=== PATIENT | male | born 1935 | race Caucasian/White ===

== ENCOUNTER 2016-12-09 09:22 | Inpatient (IN) | payer MEDICARE, OTHER ==
--- NOTE | 2016-12-09 09:51 | ED.PDOC ---
History of Present Illness - General Chief Complaint: General Stated Complaint: cough /fever Time Seen by Provider: 12/09/16 09:37 Source: patient Exam Limitations: no limitations - History of Present Illness Initial Comments: Oscar Tran 81 y/o male stated he had non productive cough for the last 4 days then had fever and chills yesterday.No sob,no chest pains; no ill contact,No foreign travel Timing/Duration: other - 4 hours Severity: moderate Improving Factors: nothing Worsening Factors: nothing Associated Symptoms: denies symptoms Allergies/Adverse Reactions: Allergies Penicillins Allergy (Verified 12/09/16 10:06) Home Medications: Ambulatory Orders Finasteride 5 mg PO DAILY 12/09/16 Omeprazole 40 mg PO DAILY 12/09/16 Simvastatin 20 mg PO DAILY 12/09/16 Tamsulosin HCl [Flomax] 0.4 mg PO DAILY 12/09/16 Review of Systems - Review of Systems Constitutional: States: no symptoms reported EENTM: States: no symptoms reported Respiratory: States: see HPI Cardiology: States: no symptoms reported Gastrointestinal/Abdominal: States: no symptoms reported Genitourinary: States: other - bph Musculoskeletal: States: back pain - chronic-lumbar spine compressed fracture Skin: States: no symptoms reported Past Medical History (General) - Patient Medical History Hx Other PMH: Yes - bph,chronic back pain Surgical History: other - prostate,cataract bilateral,hernia repair - Vaccination History Hx Pneumococcal Vaccination: Yes - Social History Hx Tobacco Use: No Hx Chewing Tobacco Use: No - Activities of Daily Living Patient Lives Alone: No - Grooming Ability: Independent Eating (Feeding) Ability: Independent Toileting Ability: Independent Family Medical History - Family History Sister Hx Family Cancer: Yes - multiple myeloma Physical Exam - Physical Exam General Appearance: Alert, No apparent distress Eye Exam: bilateral normal Ears, Nose, Throat: hearing grossly normal, normal ENT inspection, normal pharynx Neck: non-tender, full range of motion, supple Respiratory: chest non-tender, decreased breath sounds Cardiovascular/Chest: regular rate, rhythm, no murmur Peripheral Pulses: radial,right: 1+, radial,left: 1+ Gastrointestinal/Abdominal: normal bowel sounds, non tender, soft, no organomegaly Rectal Exam: tenderness - prostate gland Back Exam: normal inspection, no CVA tenderness, no vertebral tenderness Extremity: normal range of motion, non-tender, no calf tenderness Neurologic: alert, normal mood/affect, oriented x 3 Skin Exam: normal color, warm/dry Lymphatic: no adenopathy Progress - Progress Progress: 12/09/16 11:11 Vital Signs - 8 hr 12/09/16 12/09/16 12/09/16 09:25 09:35 10:38 Temperature 100.8 F H Pulse Rate Pulse Rate [ 95 H 92 H LEFT BRACHIAL] Respiratory 16 16 20 Rate Blood Pressure 153/101 143/76 [LEFT BRACHIAL] O2 Sat by Pulse 95 100 Oximetry 12/09/16 10:40 Temperature Pulse Rate 92 H Pulse Rate [ LEFT BRACHIAL] Respiratory 20 Rate Blood Pressure [LEFT BRACHIAL] O2 Sat by Pulse 95 Oximetry Laboratory Tests 12/09/16 12/09/16 12/09/16 09:55 09:55 10:05 WBC 2.4 L* RBC 3.73 L Hgb 11.9 L Hct 35.5 L MCV 95.0 H MCH 31.9 H MCHC 33.5 RDW 17.1 H Plt Count 96 L MPV 7.7 Absolute Neuts (auto) Not Reportable Absolute Lymphs (auto) Not Reportable Absolute Monos (auto) Not Reportable Absolute Eos (auto) Not Reportable Neutrophils % Not Reportable Neutrophils % (Manual) 72.0 Lymphocytes % Not Reportable Lymphocytes % (Manual) 21.0 Monocytes % Not Reportable Monocytes % (Manual) 1.0 Eosinophils % Not Reportable Basophils % Not Reportable Band Neutrophils 6.0 RBC Morphology Plts christo decreased Sodium 136 Potassium 4.3 Chloride 100 L Carbon Dioxide 27 Anion Gap 13.3 BUN 20 H Creatinine 0.84 BUN/Creatinine Ratio 23.8 H Random Glucose 152 H Serum Osmolality 277.5 Lactic Acid 2.4 H* Calcium 8.9 Total Bilirubin 1.1 H AST 52 H ALT 44 Alkaline Phosphatase 77 Serum Total Protein 7.4 Albumin 3.6 Globulin 3.8 H Albumin/Globulin Ratio 0.9 L Urine Color Urine Appearance Urine pH Ur Specific [place] Urine Protein Urine Glucose (UA) Urine Ketones Urine Blood Urine Nitrite Urine Bilirubin Urine Urobilinogen Ur Leukocyte Esterase Urine RBC Urine WBC Ur Epithelial Cells Urine Bacteria 12/09/16 10:48 WBC RBC Hgb Hct MCV MCH MCHC RDW Plt Count MPV Absolute Neuts (auto) Absolute Lymphs (auto) Absolute Monos (auto) Absolute Eos (auto) Neutrophils % Neutrophils % (Manual) Lymphocytes % Lymphocytes % (Manual) Monocytes % Monocytes % (Manual) Eosinophils % Basophils % Band Neutrophils RBC Morphology Sodium Potassium Chloride Carbon Dioxide Anion Gap BUN Creatinine BUN/Creatinine Ratio Random Glucose Serum Osmolality Lactic Acid Calcium Total Bilirubin AST ALT Alkaline Phosphatase Serum Total Protein Albumin Globulin Albumin/Globulin Ratio Urine Color Yellow Urine Appearance Clear Urine pH 7.0 Ur Specific [place] 1.020 Urine Protein 100 H Urine Glucose (UA) Negative Urine Ketones Trace Urine Blood Trace-intact H Urine Nitrite Negative Urine Bilirubin Small H Urine Urobilinogen 2.0 H Ur Leukocyte Esterase Negative Urine RBC 1-3 Urine WBC 0 Ur Epithelial Cells 0 Urine Bacteria 0 - EKG/XRAY/CT XRAY: chest - no consolidation;L spine compression deformity Departure - Departure Clinical Impression: Fever in adult, Prostatitis, acute, Thrombocytopenia, unspecified Leukopenia Qualifiers: Leukopenia type: neutropenia Neutropenia type: unspecified Qualified Code(s): D70.9 - Neutropenia, unspecified Time of Disposition: 11:50 Disposition: Admit Patient Condition: Fair Home Medications: Ambulatory Orders Finasteride 5 mg PO DAILY 12/09/16 Omeprazole 40 mg PO DAILY 12/09/16 Simvastatin 20 mg PO DAILY 12/09/16 Tamsulosin HCl [Flomax] 0.4 mg PO DAILY 12/09/16 Decision To Admit - Decistion To Admit Decision to Admit Reason: Admit from ER Decision to Admit Date: 12/09/16 - D/W Andreas Fuentes ANP/Hospitalist Decision to Admit Time: 11:51
[2016-12-09] MEDS ORDERED: IPRATROPIUM/ALBUTEROL 3 ML VIAL NEB ONE (09:53)
[2016-12-09] MEDS ORDERED: levoFLOXacin 500MG IV 500 MG in PREMIX BAG 1 BAG IVPB ONE (10:15)
--- NOTE | 2016-12-09 10:22 | RAD ---
EXAM DESCRIPTION: Chest,2 Views CLINICAL HISTORY: 81 years, Male, cough COMPARISON: September 08, 2016 FINDINGS: Adequate inspiration. Stable. Opacities at the lung bases probably chronic change. Previously noted possible infiltrate at the left base not clearly seen at this time. Possible mild bronchial wall thickening. Mild apical pleural thickening. Cardiac silhouette normal. IMPRESSION: No definite consolidation. There may be mild bronchitis. Stable heart size. Electronically signed by: Gilmar Granda MD 12/09/2016 10:20 AM CDT
[2016-12-09] MEDS ORDERED: levoFLOXacin 500MG IV 100 ML IVPB ONE (10:23)
--- NOTE | 2016-12-09 10:27 | RAD ---
EXAM DESCRIPTION: Lumbar Spine 3 Views CLINICAL HISTORY: 81 years, Male, pain COMPARISON: September 08 FINDINGS: Progressive anterior compression of L2 now about 37. Anterior height of L2 about 2.1 cm versus 3.0 cm at L3. On August study study compressive change probably about 10%. Minimal compression deformity of the superior endplate of L5 is similar prior study. Please note that L5 is a transitional vertebrae. Some minimal mid left lumbar curvature now present probably related to slight interval progression of the right-sided L2 anteriorly. Stable appearance of disc spaces. IMPRESSION: Interval mild compression deformity of L2. Other findings not significantly different Electronically signed by: Gilmar Granda MD 12/09/2016 10:26 AM CDT
[2016-12-09] MEDS ORDERED: MORPHINE SULFATE INJ 10 MG/ML VIAL IV ONE (10:46)
[2016-12-09] MEDS ORDERED: BENZONATATE PERLES 100 MG CAP PO ONE (11:22)
[2016-12-09] MEDS ORDERED: LEVALBUTEROL NEBS 1.25 MG/3 ML VIAL NEB ONE (11:23)
[2016-12-09] MEDS ORDERED: HYDROcodone 5MG/APAP 325MG 1 EA TAB PO ONE (11:24)
[2016-12-09] MEDS ORDERED: ALBUTEROL SULFATE 2.5 MG/3 ML VIAL NEB PRN (12:01)
[2016-12-09] MEDS ORDERED: ACETAMINOPHEN 325 MG TAB PO PRN (12:01)
--- NOTE | 2016-12-09 12:02 | HP ---
SUPERVISING PHYSICIAN: Miguel Thomson MD CHIEF COMPLAINT: Cough, fever. HISTORY OF PRESENT ILLNESS: Mr. Tran is a 81 year-old male who presented to the Emergency Department complaining that he had a nonobstructive cough that had been present for 4 days and that he has been running a fever and has some chills. Fever was noted up to 100.1 over the last 3 days. Laboratory studies showed that he had a 2.4 white count with a left shift and 6% bands. Chemistries had normal electrolytes. Lactic acid is elevated at 2.4. Liver functions showed a slight elevation in his AST at 52 and bilirubin at 1.1. Radiographic studies in the Emergency Department, chest x-ray 2 view, showed no definite consolidations, only mention of mild bronchitis. Dr. Crystal, based off the patient's history of back pain of which he has had a recent lumbar compression fracture and history of benign prostatic hypertrophy, completed a rectal examination with note the prostate was enlarged and tender on palpation and boggy. The patient's vital signs on admission showed he was febrile with a temperature of 100.8, pulse 101 , blood pressure initially was 143/76, saturation 95% on room air, respirations 20. Given the patient's symptomatology and concerns for acute prostatitis with fever and neutropenia with lactic acid elevated, Dr. Crystal requested a CT of the abdomen and pelvis with contrast and per radiology interpretation there was note that he had a right basilar airspace consolidation. There was also note of a large volume of stool in his colon and that his bladder wall was thickened with associated enlargement of the prostate. Dr. Crystal then requested the patient be admitted to the hospital for continuation of treatment and further evaluation for concerns for acute prostatitis with sepsis evident and consolidation noted on CT scan of the right lower lobe of the lung. The patient is now going to be admitted to the medical/surgical floor for treatment of right lower lobe pneumonia. He is admitted in stable condition. PAST MEDICAL HISTORY: 1. Lumbar compression fracture, L2, two months previous, patient being treated conservatively. 2. Benign prostatic hypertrophy. 3. Hyperlipidemia. 4. Gastroesophageal reflux disease. PAST SURGICAL HISTORY: 1. Transurethral resection of the prostate in 2004. 2. Double hernia surgery in 2004. 3. Bilateral cataracts, 2012. CURRENT MEDICATIONS: 1. Flomax 0.4 mg daily. 2. Omeprazole 40 mg daily. 3. Finasteride 5 mg daily. 4. Simvastatin 20 mg daily. ALLERGIES: PENICILLIN. FAMILY HISTORY: SOCIAL HISTORY: REVIEW OF SYSTEMS: CONSTITUTIONAL: As noted in history of present illness, fever and chills, also notes he has had an unintentional weight loss of over 30 pounds in the last 3 months. HEENT: Denies any nasal congestion, headaches, vision changes, earaches, sore throat. RESPIRATORY: As noted in history of present illness. CARDIOVASCULAR: No chest pain, syncope or near syncopal episodes, or palpitations. GASTROINTESTINAL: Notes he has problems with constipation but denies any diarrhea, nausea or vomiting or abdominal pain. GENITOURINARY: History of benign prostatic hypertrophy with some decreased flow but no hematuria or dysuria or polyuria. NEUROLOGICAL: Denies any dizziness, headaches. syncopal episodes or other neurological symptoms. PHYSICAL EXAMINATION: VITAL SIGNS: Temperature on admission to the medical/surgical floor was 101.6 , pulse 121, blood pressure 149/54, respirations 20, saturation 90% on room air. Admission weight 79.1 kg. GENERAL: The patient is ill-appearing but appears to be in no acute distress. He does have a cough. He is alert. HEENT: Tympanic membranes clear bilaterally. Pharynx is pink. Mucous membranes were dry. There are no lesions. NECK: Supple, non-tender, full range of motion with no jugular venous distention. CHEST: Lungs diminished towards the bases bilaterally with very faint wheezing and some mild rhonchi heard on the right compared to the left. CARDIOVASCULAR: Regular rate and rhythm with no murmurs, gallops, or rubs appreciated. ABDOMEN: Non-tender, positive bowel sounds. No rebound tenderness. EXTREMITIES: No cyanosis, clubbing, or edema. NEUROLOGIC: Cranial nerves II through XII are grossly intact. Facial features are symmetrical. Extraocular movements are within normal limits. There is no nystagmus. He is alert and oriented x3. There are no motor or sensory deficits noted. RECTAL: Examination performed in the Emergency Room by ER physician was reported as tenderness on palpation with a boggy enlarged prostate. No mention of bright red blood. LABORATORY: White count 2.4, hemoglobin 11.9, hematocrit 35.5, platelet count 96,000, differential did show a left shift with 60% bands. Chemistries showed normal electrolytes with potassium 4.3, BUN 20, creatinine 0.4. Glucose 152, lactic 2.4 initially, calcium 8.9, bilirubin slightly elevated with AST of 52. Other liver functions showed to be within normal limits. C-reactive protein was elevated at 26.2. PSA normal at 1.16. Urinalysis showed 100 of protein, tract intact blood, small amount of bilirubin 2.0 urobilinogen and microscopic revealed no WBCs, RBCs 1 to 3.epithelials or bacteria. MICROBIOLOGY: Blood cultures pending. Urine culture pending. Sputum culture pending. RADIOLOGY: Lumbar spine x-ray in the Emergency Department initially on admission through the Emergency Room per radiology interpretation showed a mild compression deformity at L2 and had a chest x-ray and per radiology interpretation there is no definite consolidation, mention of mild bronchitis. This was followed up by an abdomen and pelvis CT with contrast and per radiology interpretation there was note of a right basilar airspace consolidation with a trace pleural effusion concerning for pneumonia as well as a large volume of stool in the colon noted. His bladder showed some wall thickening with associated enlargement of the prostate, also note was hepatic hypodensity too small to characterize but statistically more likely a cyst or hemangioma. ASSESSMENT: 1. Right lower lobe pneumonia, community acquired in a patient with septic process. 2. Sepsis secondary to community acquired pneumonia, right lower lobe in a immunocompromised patient due to pancytopenia. 3. Acute prostatitis with normal PSA. 4. Pancytopenia, uncertain etiology but very concerning with the patient presenting with sepsis secondary to pneumonia. 5. Anemia with normochromic normochromic RBC uncertain etiology but with pancytopenia there is concern for hematological cancer such as multiple myeloma needing close follow-up 6. Unintentional weight loss of 30 pounds over the last 3 months, unknown etiology again concerning for hematological cancer such as multiple myeloma . 7. Constipation as noted on CT scan with patient having a history of obstipation. 8. Lower back pain secondary to L2 compression fracture within the last 2 months with no reported paraesthesia or bowel or bladder dysfunction 9. Microhematuria likely secondary to acute prostatitis. 10. Gastroesophageal reflux disease on PPI. PLAN: The patient will be admitted to the medical/surgical floor for continuation of treatment and further evaluation with community acquired pneumonia and developing sepsis. He was started on Levaquin in the Emergency Department. Will follow this up with continued Levaquin 500 daily and start him on some IV fluids with normal saline for a total of 2 liters to be followed up with maintenance fluids. Will plan to repeat his lactic acid at 4 o'clock today. Will await cultures results of sputum, urine and blood. Until those results are available, continue to treat with Levaquin unless patient shows some deterioration and continuation of increase in lactic acid after which will consider possibly adding a second antibiotic as appropriate. Will resume his home medications once they have been updated and verified. Will start him on DVT prophylaxis. He was having some wheezing, therefore, I plan to get him a dose of Solu-Medrol, initially 60 mg. Hopefully, this will help with the leukocytosis and thrombocytopenia as well. He will be on aggressive bronchial hygiene with Duoneb treatments q.i.d. He will be started on a regular diet. We will give him a Dulcolax suppository in efforts to relieve some of the consolidation as well as some Miralax. The patient refuses to take milk of magnesia as he says it does him no good. He has been using mag citrate in the past. We will repeat laboratory studies in the morning to include CBC and CMP and serum/urine protein electrophoresis. He will be placed on telemetry. Anticipate length of stay to 2 to 3 days. Until then, we will continue to monitor and treat appropriately. #[id number] [facility]
[2016-12-09] MEDS ORDERED: SODIUM CHLORIDE 0.9% 1000ML 1,000 ML IVS ONE (12:07)
[2016-12-09] MEDS ORDERED: methylPREDNISolone SODIUM SUC 125 MG/2 ML VIAL IV ONE (12:09)
--- NOTE | 2016-12-09 12:22 | CT ---
EXAM DESCRIPTION: Abdomen/Pelvis w/Contrast CLINICAL HISTORY: Abdominal pain. COMPARISON: None. TECHNIQUE: CT of the abdomen and pelvis was performed following intravenous contrast. Multiple axial images and multiplanar reconstructions were generated. This exam was performed according to our departmental dose-optimization program, which includes automated exposure control, adjustment of the mA and/or kV according to patient size and/or use of iterative reconstruction technique. FINDINGS: Lung bases: There is patchy consolidation in the dependent portion of the right lower lobe with an associated small right pleural effusion. Solid organs: 4 mm hypodensity in the right hepatic lobe which is too small to completely characterize. The gallbladder, spleen, pancreas, kidneys, and adrenal glands are unremarkable. Gastrointestinal: The stomach and small intestine are unremarkable. There is a moderate volume of stool present throughout the colon. The appendix is not visualized. No free fluid or free air. Vascular: Severe atherosclerotic plaque in the abdominal aorta and its major branches. Lymph nodes: No pathologically enlarged lymph nodes are present by CT size criteria. Musculoskeletal and soft tissues: Multilevel degenerative changes in the lumbar spine. There is a compression fracture of the L2 vertebral body with up to 30% loss of stature along the superior endplate, with slight cortical irregularity suggesting this may be acute or subacute. Small fat-containing right inguinal hernia. Urinary bladder and pelvic organs: Diffuse bladder wall thickening is demonstrated. The prostate is enlarged. IMPRESSION: 1. Right basilar airspace consolidation with trace right pleural effusion, concerning for pneumonia or aspiration. 2. Large volume of stool in the colon. Correlate for constipation. 3. Bladder wall thickening with associated enlargement of the prostate. Correlate with urinalysis for infectious/inflammatory etiologies versus chronic outlet obstruction. 4. Hepatic hypodensity too small to completely characterize, but statistically most likely a cyst or hemangioma. 5. Other findings as above. Electronically signed by: Chase Tavares MD 12/09/2016 12:21 PM CDT
[2016-12-09] MEDS: IV SET AND CAP CHANGE INJ INJ SCH (12:38)
[2016-12-09] MEDS ORDERED: BISACODYL SUPPOSITORY 10 MG PR ONE (12:43)
[2016-12-09] MEDS ORDERED: KETOROLAC TROMETHAMINE INJ 30 MG/ML VIAL IV ONE (12:43)
--- NOTE | 2016-12-09 12:45 | PCM.CORE ---
Physician DVT/VTE - Nurse DVT Assessment & Total Each Risk Factor Represents 3 Points: Age over 75 years, Medical PT with Hx of ND, CHF, Severe infection/sepsis DVT Assessment Score: 6 - 5 or more Very High Risk Treatments: Early Ambulation *, Sequential Compression Device Pharmacological: Enoxaparin 40mg SQ Daily
[2016-12-09] MEDS: POLYETHYLENE GLYCOL 3350 17 GM PCKT PO SCH (12:55)
[2016-12-09] MEDS ORDERED: ENOXAPARIN SODIUM 40 MG/0.4 ML SYG SUBCU SCH (13:00)
[2016-12-09] MEDS ORDERED: SODIUM CHLORIDE 0.9% 1000ML 1,000 ML IVS PRN (14:13)
[2016-12-09] MEDS: IPRATROPIUM/ALBUTEROL 3 ML VIAL INH SCH ×2 (16:14→20:10)
[2016-12-09] MEDS: MORPHINE SULFATE INJ 10 MG/ML VIAL IV PRN (17:09)
[2016-12-09] MEDS: KCL 20MEQ/0.45% NS 1,000 ML IVS PRN (17:09)
[2016-12-10] MEDS: BENZONATATE PERLES 100 MG CAP PO SCH ×4 (00:05→20:40)
[2016-12-10] MEDS: MORPHINE SULFATE INJ 10 MG/ML VIAL IV PRN (04:34)
[2016-12-10] MEDS ORDERED: PANTOPRAZOLE SODIUM IV 40 MG VIAL ONE (05:22)
[2016-12-10] MEDS: KCL 20MEQ/0.45% NS 1,000 ML IVS PRN (05:25)
[2016-12-10] MEDS: PANTOPRAZOLE SODIUM IV 40 MG VIAL IV SCH (05:37)
--- NOTE | 2016-12-10 06:52 | RAD ---
Procedure: XR CHEST 2 VIEWS Exam Date: 12/10/2016 Ordering Provider: Wilbur Fuentes NP Clinical Indication: Pneumonia Comparison: 12/09/2016 Findings: Cardiomediastinal silhouette is stable. Focal lung consolidation: Right basilar subsegmental atelectasis and/or infiltrate. Left lung is clear. Pleural effusion: Small right pleural effusion. Pneumothorax: None Acute bony or soft tissue abnormality: None Impression: 1. Right basilar subsegmental atelectasis and/or infiltrate with small right pleural effusion. Electronically signed by: Thomas Avila MD 12/10/2016 6:51 AM CDT
[2016-12-10] MEDS: IPRATROPIUM/ALBUTEROL 3 ML VIAL INH SCH ×4 (08:18→20:08)
[2016-12-10] MEDS ORDERED: levoFLOXacin 500MG IV 100 ML IVPB ONE (08:21)
[2016-12-10] MEDS ORDERED: ENOXAPARIN SODIUM 40 MG/0.4 ML SYG SUBCU SCH (09:00)
[2016-12-10] MEDS ORDERED: SIMVASTATIN 20 MG TAB PO SCH (09:00)
[2016-12-10] MEDS: levoFLOXacin 500MG IV 500 MG in PREMIX BAG 1 BAG IVPB SCH (09:03)
[2016-12-10] MEDS: TAMSULOSIN 0.4 MG CAP PO SCH (09:04)
[2016-12-10] MEDS: POLYETHYLENE GLYCOL 3350 17 GM PCKT PO SCH (09:04)
[2016-12-10] MEDS: FINASTERIDE 5 MG TAB PO SCH (09:04)
[2016-12-10] MEDS ORDERED: SODIUM CHLORIDE 0.9% (FLUSH) 10 ML SYG IV ONE (12:41)
[2016-12-10] MEDS: ESCITALOPRAM 10 MG TAB PO SCH (13:30)
[2016-12-10] MEDS: ONDANSETRON INJ 4 MG/2 ML VIAL IV PRN (13:51)
[2016-12-10] MEDS ORDERED: ALPRAZolam 0.25 MG TAB PO ONE (16:28)
[2016-12-10] MEDS: HYDROcodone 5MG/APAP 325MG 1 EA TAB PO PRN (19:02)
[2016-12-10] MEDS: SIMVASTATIN 20 MG TAB PO SCH (20:40)
--- NOTE | 2016-12-10 21:08 | PN ---
DATE: 12/10/16 SUPERVISING PHYSICIAN: Miguel Thomson M.D. SUBJECTIVE: The patient is feeling a little better this morning. He has been afebrile since admission. He has had no nausea or vomiting. Says his shortness of breath is improved as well. He notes that he continues to feel weak and just generally not well. The patient notes that he has had several moderate sized bowel movements and says he feels a little bit better in regards to his constipation. OBJECTIVE: VITAL SIGNS: T max was 99.1, pulse 79, blood pressure 119/71, respirations 20, satting 96% on room air. Weight is 81.4 kg. I's and O's show a positive balance of 1770 with 3645 in, 1875 out. CHEST: Lungs remain diminished bilaterally but no obvious lesions noted today. Continues to have faint rhonchi heard over the right lateral posterior aspect compared to the left. HEART: Regular rate and rhythm. ABDOMEN: Soft, non-tender. Positive bowel sounds. EXTREMITIES: No clubbing, cyanosis or edema. LABORATORY: White count remains at 2.4, hemoglobin has dropped to 9.6, hematocrit 28.2 with platelet count 85,000. Differential shows a left shift. Chemistries: Sodium remains low at 133, potassium 5.0 with BUN 19, creatinine 0.74, calcium 8.1. LDH was 212, sed rate was 50. MICROBIOLOGY: Blood cultures remain negative at 24 hours. Urine culture remains negative at 24 hours. RADIOLOGY: Chest x-ray two view chest this morning per radiology interpretation continues to show a right basilar subsegmental atelectasis and/ or infiltrate with a small pleural effusion on the right. ASSESSMENT: 1. Right lower lobe pneumonia community acquired in a patient with a septic component showing some stabilization after IV fluids with now normal lactic acid. 2. Sepsis secondary to community acquired pneumonia right lower lobe in an immunocompromised patient due to pancytopenia. 3. Acute prostatitis with a normal PSA and elevated C reactive protein. 4. Anemia with a normocytic normochromic RBC presentation of uncertain etiology with pancytopenia that is a concern for hematological cancer such as multiple myeloma needing close followup. 5. Unintentional weight loss of 30 pounds over the last 3 months, unknown etiology again concerning for hematological cancer such as multiple myeloma. 6. Constipation as noted on CT scan with patient having a history of obstipation showing good improvement with enemas and Milk of Magnesia. 7. Lower back pain secondary to L2 compression fracture within the last 2 months with no reported paraesthesia or bowel or bladder dysfunction. 8. Microhematuria likely secondary to acute prostatitis. 9. Gastroesophageal reflux disease on PPI. PLAN: Will continue with antibiotic treatment at this point with Levaquin for the community acquired pneumonia and possible prostatitis. Given the concerns for multiple myeloma with the patient showing weight loss, pancytopenia, elevated LDH, sed rate and C reactive protein, I will go ahead and order a serum protein electrophoresis. The patient will need close followup in regards to those findings. He does not have a primary care provider in [place] as he is just here visiting temporarily as he has family here, but has voiced that he would like to establish to assist with further investigation of the ongoing concern for multiple myeloma or other hematologic disorders. I did discuss with him that hopefully we could get him into Dr. Mittal for further consultation in the near future. He does live just 30 minutes away from [place] in [place], and is in agreement with seeing Dr. Mittal at [facility] whenever he needs to. He is also having some issues with sleeping and his has voiced that he has been very depressed and not sleeping for quite a while now. Given the insomnia and ongoing depression, will start him on Lexapro for antidepressant and try p.r.n. Xanax as well as Restoril to assist with the patient's resting and anxiety. He will continue on aggressive DuoNeb treatments and pulmonary hygiene. At this point, I will not give an additional dose of Solu-Medrol awaiting further studies on the serum protein electrophoresis and the patient is no longer showing any respiratory distress or any wheezing. I will continue with Milk of Magnesia as needed for constipation. The patient has a positive balance fluid ramirez and is taking adequate p.o. fluids, therefore will plan to saline lock him. He will remain on telemetry for close monitoring for an additional 24 hours. He will certainly benefit from continued parenteral antibiotics awaiting final culture results of sputum, urine and another 24 to 48 hours for blood cultures to result out as he improves clinically. Will continue to monitor with repeat laboratory studies. In regards to his L2 fracture, again there is a remote concern that this may be resulting from some underlying hematologic disorder such as multiple myeloma and I did discuss this with the patient. He has in the past seen somebody in [place] in regards to a possible kyphoplasty procedure, however given the concerns for the multiple myeloma and other disorders at this point I think followup with Dr. Mittal is prudent and just treat his back pain with pain medicine as needed. He is having good control with Motrin. Will plan to do a Physical Therapy consultation on him Monday prior to discharge. If he is discharged tomorrow, he will certainly need close followup with either Rachel in the clinic or Dr. Joy to further assist in referral to Dr. Mittal. Until discharge, will continue to monitor and treat appropriately. #[id number] [facility]
[2016-12-10] MEDS: TEMAZEPAM 15 MG CAP PO PRN (22:05)
[2016-12-11] MEDS: HYDROcodone 5MG/APAP 325MG 1 EA TAB PO PRN ×3 (05:10→19:52)
[2016-12-11] MEDS: PANTOPRAZOLE SODIUM IV 40 MG VIAL IV SCH (05:37)
[2016-12-11] MEDS: SODIUM CHLORIDE 0.9% (FLUSH) 10 ML SYG IV PRN (05:37)
--- NOTE | 2016-12-11 07:03 | RAD ---
Clinical History : pneumonia , MAIN Exam : PA and lateral views of the chest 12/11/2016 7:00 AM CDT Comparisons : PA and lateral views of the chest December 10, 2016 CT abdomen and pelvis with contrast December 09, 2016 Findings : There is improving right lower lobe airspace disease. The rest the lungs remain largely clear. The heart is stable in size. The mediastinal contours are normal in appearance. The thoracic spine is age appropriate. The shoulders are unremarkable. Limited evaluation of the upper abdomen demonstrates no gross abnormalities. Impression: Improving right lower lobe airspace disease. Electronically signed by: Johanne Lee MD 12/11/2016 7:02 AM CDT
[2016-12-11] MEDS ORDERED: levoFLOXacin 500MG IV 100 ML IVPB ONE (08:19)
[2016-12-11] MEDS: IPRATROPIUM/ALBUTEROL 3 ML VIAL INH SCH ×4 (08:44→20:10)
[2016-12-11] MEDS: FINASTERIDE 5 MG TAB PO SCH (09:43)
[2016-12-11] MEDS: ESCITALOPRAM 10 MG TAB PO SCH (09:43)
[2016-12-11] MEDS: BENZONATATE PERLES 100 MG CAP PO SCH ×3 (09:43→20:59)
[2016-12-11] MEDS: TAMSULOSIN 0.4 MG CAP PO SCH (09:43)
[2016-12-11] MEDS: levoFLOXacin 500MG IV 500 MG in PREMIX BAG 1 BAG IVPB SCH (09:43)
[2016-12-11] MEDS: SODIUM CHLORIDE 0.9% (FLUSH) 10 ML SYG IV SCH ×2 (09:44→19:52)
[2016-12-11] MEDS: POLYETHYLENE GLYCOL 3350 17 GM PCKT PO SCH (10:00)
[2016-12-11] MEDS: BENZOCAINE-MENTH LOZ (CEPACOL) 1 EA LOZ MT PRN (10:08)
[2016-12-11] MEDS: guaiFENesin ER TAB 600 MG TAB PO SCH ×2 (11:30→20:59)
[2016-12-11] MEDS: ONDANSETRON INJ 4 MG/2 ML VIAL IV PRN (12:22)
--- NOTE | 2016-12-11 12:30 | PN ---
DATE: 12/11/16 SUPERVISING PHYSICIAN: Miguel Thomson M.D. SUBJECTIVE: The patient says he feels somewhat better this morning but he continues complaints of a lot of coughing and he cannot get the phlegm up. He also has some pain in the right lower rib area and he also gets somewhat short of breath with exertion. OBJECTIVE: VITAL SIGNS: He is afebrile. Heart rate is 105, it has gotten up as high as 124. Blood pressure 150/78, respiratory rate 20, O2 sat is 94% on 2 liters nasal cannula. The patient has had 2 large bowel movements in the last 24 hours. CARDIAC: Regular rate and rhythm. RESPIRATORY: Diminished throughout somewhat more notably on the right side. There is no expiratory wheezing. ABDOMEN: Soft, nondistended, non-tender. Bowel sounds are positive. EXTREMITIES: No cyanosis, clubbing or edema. NEUROLOGIC: He is awake, alert and oriented times three. LABORATORY: WBCs have dropped slightly to 2.1, hemoglobin and hematocrit are stable at 9.6 and 28.2 with platelet count 85. Electrolytes are basically within normal limits. C reactive protein is improved to 11.2. Preliminary blood cultures show no growth after 24 hours and his urine culture shows no growth after 48 hours. Chest x-ray per radiology interpretation shows improving right lower lobe airspace disease. All other labs and films have been reviewed via the EMR. ASSESSMENT: 1. Right lower lobe pneumonia community acquired in a patient with a septic component showing some stabilization after IV fluids. 2. Sepsis secondary to community acquired pneumonia right lower lobe in an immunocompromised patient due to pancytopenia. 3. Acute prostatitis with normal PSA and elevated C reactive protein. 4. Anemia with a normocytic normochromic RBC presentation of uncertain etiology with pancytopenia that is a concern for a hematological cancer such as multiple myeloma needing close followup. 5. Unintentional weight loss of 30 pounds over the last 3 months, unknown etiology. 6. Constipation as noted per CT scan. The patient has a history of chronic constipation. 7. Lower back pain secondary to an L2 compression fracture within the last 2 months with no reported paresthesia, bowel or bladder dysfunction. 8. Microhematuria likely secondary to acute prostatitis. 9. Gastroesophageal reflux disease on a PPI. PLAN: We will continue present supportive care. I will order routine labs in the morning. I have also added Mucinex as an expectorant as well as Cepacol lozenges to help with the cough. He has a scheduled appointment with a new primary care physician, Dr. Yun, in [place] on 12/28/16, but will need to obtain an appointment with Hematology in [place] prior to his discharge. I have also ordered an ambulation study in the morning as well as a PT consultation. I will also get nursing to ambulate him today and check his oxygen. We will continue to monitor the patient closely and followup as needed. Dr. Thomson is the collaborating physician available for consultation. #[id number] [facility]
[2016-12-11] MEDS: TEMAZEPAM 15 MG CAP PO PRN (20:55)
[2016-12-11] MEDS: SIMVASTATIN 20 MG TAB PO SCH (20:59)
[2016-12-12] MEDS: HYDROcodone 5MG/APAP 325MG 1 EA TAB PO PRN ×4 (01:44→20:03)
[2016-12-12] MEDS: SODIUM CHLORIDE 0.9% (FLUSH) 10 ML SYG IV PRN ×2 (05:34→23:33)
[2016-12-12] MEDS: PANTOPRAZOLE SODIUM IV 40 MG VIAL IV SCH (05:34)
[2016-12-12] MEDS ORDERED: levoFLOXacin 500MG IV 100 ML IVPB ONE (08:08)
[2016-12-12] MEDS: IPRATROPIUM/ALBUTEROL 3 ML VIAL INH SCH ×4 (08:23→20:43)
[2016-12-12] MEDS: ESCITALOPRAM 10 MG TAB PO SCH (08:34)
[2016-12-12] MEDS: guaiFENesin ER TAB 600 MG TAB PO SCH ×2 (08:34→20:03)
[2016-12-12] MEDS: levoFLOXacin 500MG IV 500 MG in PREMIX BAG 1 BAG IVPB SCH (08:35)
[2016-12-12] MEDS: BENZONATATE PERLES 100 MG CAP PO SCH ×3 (08:35→20:03)
[2016-12-12] MEDS: TAMSULOSIN 0.4 MG CAP PO SCH (08:35)
[2016-12-12] MEDS: FINASTERIDE 5 MG TAB PO SCH (08:35)
[2016-12-12] MEDS: POLYETHYLENE GLYCOL 3350 17 GM PCKT PO SCH (08:36)
[2016-12-12] MEDS: BENZOCAINE-MENTH LOZ (CEPACOL) 1 EA LOZ MT PRN ×2 (08:36→20:03)
[2016-12-12] MEDS: SODIUM CHLORIDE 0.9% (FLUSH) 10 ML SYG IV SCH ×2 (08:36→20:03)
[2016-12-12] MEDS ORDERED: PANTOPRAZOLE SODIUM TAB 40 MG PO ONE (08:44)
[2016-12-12] MEDS: PANTOPRAZOLE SODIUM TAB 40 MG PO SCH (08:45)
[2016-12-12] MEDS: IV SET AND CAP CHANGE INJ INJ SCH (12:25)
--- NOTE | 2016-12-12 13:16 | PN ---
SUPERVISING PHYSICIAN: Cristofer Joy MD DATE: 12/12/16 SUBJECTIVE: The patient is sitting up in his hospital bed. He is eating his meal. His is at the bedside. He has complaints of shortness of breath, especially with exertion, but he did manage to walk approximately 50 feet without any significant desaturations. OBJECTIVE: VITAL SIGNS: Afebrile. Heart rate 101. Blood pressure 115/70. Respiratory rate 20. O2 saturation 93% on 2 liters nasal cannula. LUNGS: Rhonchi noted through all lung nova with a few expiratory wheezes in the bases. CARDIAC: Regular rate and rhythm. ABDOMEN: Soft, nontender, nondistended. Bowel sounds are positive. EXTREMITIES: No cyanosis, clubbing or edema. NEUROLOGIC: Awake, alert and oriented times three. LABORATORY: WBC down to 1.9. Hemoglobin and hematocrit are stable at 9.8 and 29.1. Platelet count 93. Sodium 134, potassium 4.3, chloride 98, carbon dioxide 28, BUN 17, creatinine 0.67, calcium 8.3, serum total protein 5.8, albumin 2.8. Preliminary blood cultures show no growth after 3 days. All other labs and films have been reviewed via the EMR. ASSESSMENT: 1. Right lower lobe pneumonia, community acquired, in a patient with a septic component, showing some stabilization after antibiotics and IV fluids. 2. Sepsis secondary to #1. 3. Acute prostatitis with normal PSA and elevated C-reactive protein. 4. Anemia with a normocytic/normochromic RBC presentation of uncertain etiology with pancytopenia that is a concern for a hematologic disorder and need for close followup. 5. Unintentional weight loss of 30 pounds over the last 3 months, unknown etiology. 6. Constipation, now resolved. 7. Lower back pain secondary to an L2 compression fracture within the last 2 months with no reported paresthesia, bowel or bladder dysfunction. 8. Microhematuria, most likely secondary to acute prostatitis. 9. Gastroesophageal reflux disease. PLAN: We will continue present supportive care. I spoke with Dr. Mittal this morning and she will see the patient in clinic next week. She has also requested labs and has asked for a B12 and folate level. We will fax all of the pertinent records to her. He also has a scheduled appointment with his new primary care physician, Dr. Yun in [place] at the end of the month. He is to continue his aggressive pulmonary hygiene and we will continue to monitor him closely. I also ordered a chest x-ray for the morning. Dr. Joy is the collaborating physician and available for consultation. #[id number] [facility]PITALEvelyn
[2016-12-12] MEDS: SIMVASTATIN 20 MG TAB PO SCH (20:03)
[2016-12-12] MEDS: TEMAZEPAM 15 MG CAP PO PRN (20:39)
[2016-12-12] MEDS: MORPHINE SULFATE INJ 10 MG/ML VIAL IV PRN (23:33)
[2016-12-13] MEDS ORDERED: PANTOPRAZOLE SODIUM TAB 40 MG PO ONE (04:37)
[2016-12-13] MEDS: HYDROcodone 5MG/APAP 325MG 1 EA TAB PO PRN ×4 (04:38→23:28)
[2016-12-13] MEDS: PANTOPRAZOLE SODIUM TAB 40 MG PO SCH (06:30)
--- NOTE | 2016-12-13 07:05 | RAD ---
EXAM: Two view chest. INDICATION: Pneumonia. COMPARISON: Chest x-ray: None. FINDINGS: There is a right basilar airspace opacity. The left lung is clear. The heart is normal in size. A small right pleural effusion is present. There is no pneumothorax IMPRESSION: Right basilar airspace opacity, concerning for pneumonia. Electronically signed by: Andrés Hernández MD 12/13/2016 7:04 AM CDT Workstation: [id number]
[2016-12-13] MEDS ORDERED: levoFLOXacin 500MG IV 100 ML IVPB ONE (08:00)
[2016-12-13] MEDS: IPRATROPIUM/ALBUTEROL 3 ML VIAL INH SCH ×3 (08:31→16:01)
[2016-12-13] MEDS: levoFLOXacin 500MG IV 500 MG in PREMIX BAG 1 BAG IVPB SCH (08:44)
[2016-12-13] MEDS: TAMSULOSIN 0.4 MG CAP PO SCH (08:46)
[2016-12-13] MEDS: ESCITALOPRAM 10 MG TAB PO SCH (08:46)
[2016-12-13] MEDS: POLYETHYLENE GLYCOL 3350 17 GM PCKT PO SCH (08:46)
[2016-12-13] MEDS: BENZOCAINE-MENTH LOZ (CEPACOL) 1 EA LOZ MT PRN ×3 (08:46→23:30)
[2016-12-13] MEDS: guaiFENesin ER TAB 600 MG TAB PO SCH ×2 (08:46→21:14)
[2016-12-13] MEDS: BENZONATATE PERLES 100 MG CAP PO SCH ×3 (08:46→21:14)
[2016-12-13] MEDS: FINASTERIDE 5 MG TAB PO SCH (08:46)
[2016-12-13] MEDS: SODIUM CHLORIDE 0.9% (FLUSH) 10 ML SYG IV SCH ×2 (09:59→21:15)
--- NOTE | 2016-12-13 13:11 | PN ---
SUPERVISING PHYSICIAN: Cristofer Joy MD DATE: 12/13/16 SUBJECTIVE: The patient is sitting up in the his bed. He has complained of coughing. He continues to feel poorly. He gets short of breath with exertion. He denies any chest pain, nausea, vomiting. OBJECTIVE: VITAL SIGNS: Afebrile. Heart rate 85. Blood pressure 111/56. Respiratory rate 18. O2 saturation 92% on 2 liters nasal cannula. LUNGS: Bilateral rhonchi throughout, somewhat diminished at the bases. Questionable mild expiratory wheezing throughout although clears with coughing. CARDIAC: Regular rate and rhythm. ABDOMEN: Soft, nontender, nondistended. Bowel sounds are positive. EXTREMITIES: No cyanosis, clubbing or edema. NEUROLOGIC: Awake, alert and oriented times three. LABORATORY: WBC unchanged at 1.9. Hemoglobin and hematocrit are stable at 10.2 and 29.8. Platelet count is slightly improved at 105. Sodium 134, potassium 4.2, chloride 96, BUN 15, creatinine 0.75. Serum osmolality 269, calcium 8.3. C-reactive protein has gone up to 26.3. Vitamin B12 is 635, serum folate 7.64. Preliminary blood cultures, urine culture and sputum culture show no growth. Chest x-ray per radiologic interpretation shows right basilar airspace opacity concerning for pneumonia. All other labs and films have been reviewed via the EMR. ASSESSMENT: 1. Right lower lobe pneumonia, community acquired, in a patient with a septic component, showing some stabilization after antibiotics and IV fluids. 2. Sepsis secondary to #1. 3. Acute prostatitis with normal PSA and elevated C-reactive protein. 4. Anemia with a normocytic/normochromic RBC presentation of uncertain etiology with pancytopenia that is a concern for a hematologic disorder and need for close followup. 5. Unintentional weight loss of 30 pounds over the last 3 months, unknown etiology. 6. Constipation, now resolved. 7. Lower back pain secondary to an L2 compression fracture within the last 2 months with no reported paresthesia, bowel or bladder dysfunction. 8. Microhematuria, most likely secondary to acute prostatitis. 9. Gastroesophageal reflux disease. PLAN: We will continue present supportive care. I spoke with Dr. Mittal' s office this morning to see if we could add some steroids. I am still awaiting her return call. He has an appointment with her , 12/22/16 at 1:30. I have also faxed the lab results to her office. He also meets criteria for home oxygen and we have moved his appointment with his new primary care physician, Dr. Yun, up to 12/20/16 for followup from the hospital. I also spoke with Dr. Valles, infectious disease physician in [place], and she suggested we change him to a more broach spectrum antibiotic such as Zosyn or Merrem. In regards to his prostatitis, Dr. Masters will be in hospital tomorrow. I will speak to him about the concerns for his antibiotic coverage given that he is a patient of Dr. Lopez's and I will talk to Dr. Masters to see if he would like to see him in the hospital or have Dr. Lopez followup with him as an outpatient. Given his immunocompromised state, this may be a very slow process in regard to his pneumonia as well as his prostatitis. Hopefully from the pneumonia and prostatitis standpoint we can discharge him in the couple of days with very close followup with his new primary care physician as well as the consults, which are Dr. Valles, Dr. Mittal, and Dr. Lopez. Meanwhile, we will continue to monitor the patient closely and followup as needed. Dr. Joy is the collaborating physician and available for consultation. #[id number] [facility]PITALEvelyn
[2016-12-13] MEDS: MAGNESIUM HYDROXIDE 30 ML UD PO SCH ×2 (13:28→16:29)
[2016-12-13] MEDS ORDERED: MEROPENEM 1 GM VIAL IVPB ONE ×2 (14:09→20:46)
[2016-12-13] MEDS ORDERED: SODIUM CHL 0.9% 50ML MIN-BAG+ 50 ML IVPB ONE ×2 (14:09→20:45)
[2016-12-13] MEDS: MEROPENEM 1 GM in SODIUM CHL 0.9% 50ML MIN-BAG+ 50 ML IVPB SCH ×2 (14:48→22:38)
[2016-12-13] MEDS ORDERED: methylPREDNISolone SODIUM SUC 125 MG/2 ML VIAL IV ONE (20:09)
[2016-12-13] MEDS ORDERED: HYDROCORTISONE SOD SUCC INJ 100 MG/2 ML VIAL ONE (20:44)
[2016-12-13] MEDS: SIMVASTATIN 20 MG TAB PO SCH (21:14)
[2016-12-13] MEDS: TEMAZEPAM 15 MG CAP PO PRN (21:14)
[2016-12-13] MEDS: SODIUM CHLORIDE 0.9% (FLUSH) 10 ML SYG IV PRN (22:37)
[2016-12-14] MEDS: HYDROcodone 5MG/APAP 325MG 1 EA TAB PO PRN ×4 (03:52→21:07)
[2016-12-14] MEDS: IPRATROPIUM/ALBUTEROL 3 ML VIAL INH SCH ×5 (05:15→19:05)
[2016-12-14] MEDS ORDERED: MEROPENEM 500 MG VIAL IVPB ONE (05:23)
[2016-12-14] MEDS ORDERED: SODIUM CHLORIDE 0.9% 50ML 50 ML ONE (05:23)
[2016-12-14] MEDS: SODIUM CHLORIDE 0.9% (FLUSH) 10 ML SYG IV PRN (06:22)
[2016-12-14] MEDS: MEROPENEM 1 GM in SODIUM CHL 0.9% 50ML MIN-BAG+ 50 ML IVPB SCH ×3 (06:22→21:56)
--- NOTE | 2016-12-14 06:29 | RAD ---
EXAM: Two view chest. INDICATION: Pneumonia. COMPARISON: Chest x-ray: 12/13/2016. FINDINGS: There is a right-sided peribronchial thickening. The left lung is clear. There is no pneumothorax or pleural effusion. The heart size is stable. The bones are unchanged. IMPRESSION: Right-sided perihilar thickening. Electronically signed by: Andrés Hernández MD 12/14/2016 6:28 AM CDT Workstation: [id number]
[2016-12-14] MEDS: PANTOPRAZOLE SODIUM TAB 40 MG PO SCH (07:03)
[2016-12-14] MEDS: BENZONATATE PERLES 100 MG CAP PO SCH ×3 (08:45→21:06)
[2016-12-14] MEDS: ESCITALOPRAM 10 MG TAB PO SCH (08:45)
[2016-12-14] MEDS: guaiFENesin ER TAB 600 MG TAB PO SCH ×2 (08:45→20:55)
[2016-12-14] MEDS: TAMSULOSIN 0.4 MG CAP PO SCH (08:45)
[2016-12-14] MEDS: SODIUM CHLORIDE 0.9% (FLUSH) 10 ML SYG IV SCH ×2 (08:46→20:55)
[2016-12-14] MEDS: POLYETHYLENE GLYCOL 3350 17 GM PCKT PO SCH (08:46)
[2016-12-14] MEDS: FINASTERIDE 5 MG TAB PO SCH (08:46)
[2016-12-14] MEDS ORDERED: MEROPENEM 1 GM VIAL IVPB ONE ×2 (14:36→21:13)
[2016-12-14] MEDS ORDERED: SODIUM CHL 0.9% 50ML MIN-BAG+ 50 ML IVPB ONE ×2 (14:36→21:13)
[2016-12-14] MEDS ORDERED: methylPREDNISolone SODIUM SUC 40 MG/ML VIAL IV ONE (16:41)
--- NOTE | 2016-12-14 17:57 | PN ---
DATE: 12/14/16 SUPERVISING PHYSICIAN: Cristofer Joy M.D. SUBJECTIVE: The patient is sitting up in his hospital bed. He feels much better than he did yesterday. He actually at rest does not need his oxygen and does not get short of breath, although he has not walked as yet. OBJECTIVE: He is afebrile, heart rate 73, blood pressure 131/70, respiratory rate 17, O2 sat is 93% on room air at rest. His ambulation on 2 liters nasal cannula during exertion dropped down to 89%. RESPIRATORY: Essentially clear to auscultation bilaterally, slightly diminished at the bases. CARDIAC: Regular rate and rhythm. ABDOMEN: Soft, nondistended, non-tender. Bowel sounds are positive. EXTREMITIES: No cyanosis, clubbing or edema. NEUROLOGIC: He is awake , alert and oriented times three. LABORATORY: WBCs have slightly decreased to 1.5, hemoglobin 10.1, hematocrit 29.6, platelets are up slightly to 109. Sodium is stable at 134, chloride 99, BUN 18, creatinine 0.56, calcium 8.3. Chest x-ray per radiology interpretation shows right sided perihilar thickening. All other labs and films have been reviewed via the EMR. ASSESSMENT: 1. Right lower lobe pneumonia, community acquired, in a patient with a septic component, showing some stabilization after antibiotics and IV fluids. 2. Sepsis secondary to #1. 3. Acute prostatitis with normal PSA and elevated C-reactive protein. 4. Anemia with a normocytic/normochromic RBC presentation of uncertain etiology with pancytopenia that is a concern for a hematologic disorder and need for close followup. 5. Unintentional weight loss of 30 pounds over the last 3 months, unknown etiology. 6. Constipation, now resolved. 7. Lower back pain secondary to an L2 compression fracture within the last 2 months with no reported paresthesia, bowel or bladder dysfunction. 8. Microhematuria, most likely secondary to acute prostatitis. 9. Gastroesophageal reflux disease. PLAN: Will continue present supportive care. I was unable to get in touch with Dr. Masters today. Will try to get him a followup appointment with Dr. Lopez for discharge. Initially we were trying to get him some home O2, but today he has improved enough that he has not required oxygen as frequently today. He has been on breathing treatments scheduled over the last few days. We will recheck his ambulation study tomorrow. He has continued on Merrem. I gave him 1 dose of steroids yesterday and it seemed to improve him quite a bit, so I will give him a small dose tomorrow and he may need to go home on a few oral steroids. Hopefully he can go home tomorrow, but I will call Dr. Valles prior to his discharge to make sure what antibiotics he should be discharged on. He has the followup appointment with Dr. Mittal next week and then we will also get a followup with Dr. Valles at some point. I will also order CRP in the morning, hopefully it is trending downward and Dr. Mittal wanted to followup with that lab value. We will continue to monitor him closely and followup as needed. Dr. Joy is the collaborating physician and available for consultation. #[id number] [facility]ITALEvelyn
[2016-12-14] MEDS: SIMVASTATIN 20 MG TAB PO SCH (21:07)
[2016-12-14] MEDS: TEMAZEPAM 15 MG CAP PO PRN (21:07)
[2016-12-15] MEDS ORDERED: SODIUM CHL 0.9% 50ML MIN-BAG+ 50 ML IVPB ONE ×2 (02:01→13:31)
[2016-12-15] MEDS ORDERED: MEROPENEM 1 GM VIAL IVPB ONE ×2 (02:02→13:32)
[2016-12-15] MEDS: HYDROcodone 5MG/APAP 325MG 1 EA TAB PO PRN (02:12)
[2016-12-15] MEDS: BENZOCAINE-MENTH LOZ (CEPACOL) 1 EA LOZ MT PRN (04:27)
[2016-12-15] MEDS: PANTOPRAZOLE SODIUM TAB 40 MG PO SCH (06:15)
[2016-12-15] MEDS: MEROPENEM 1 GM in SODIUM CHL 0.9% 50ML MIN-BAG+ 50 ML IVPB SCH ×2 (06:16→13:34)
[2016-12-15] MEDS: IPRATROPIUM/ALBUTEROL 3 ML VIAL INH SCH ×2 (08:47→12:59)
[2016-12-15] MEDS: POLYETHYLENE GLYCOL 3350 17 GM PCKT PO SCH (09:31)
[2016-12-15] MEDS: FINASTERIDE 5 MG TAB PO SCH (09:31)
[2016-12-15] MEDS: BENZONATATE PERLES 100 MG CAP PO SCH (09:31)
[2016-12-15] MEDS: SODIUM CHLORIDE 0.9% (FLUSH) 10 ML SYG IV SCH (09:32)
[2016-12-15] MEDS: guaiFENesin ER TAB 600 MG TAB PO SCH (09:32)
[2016-12-15] MEDS: TAMSULOSIN 0.4 MG CAP PO SCH (09:32)
[2016-12-15] MEDS: ESCITALOPRAM 10 MG TAB PO SCH (09:32)
[2016-12-15 11:32] VITALS: BP 127/74; TEMP 97.9
[2016-12-15] MEDS: IV SET AND CAP CHANGE INJ INJ SCH (13:00)
[2016-12-15] MEDS: SODIUM CHLORIDE 0.9% (FLUSH) 10 ML SYG IV PRN (13:34)
[2016-12-15 14:03] VITALS: O2SAT 98
[2016-12-15] MEDS ORDERED: predniSONE 20 MG TAB PO ONE (14:35)
[2016-12-15] MEDS ORDERED: predniSONE 20 MG TAB ONE (14:39)
--- NOTE | 2016-12-15 17:38 | DS ---
SUPERVISING PHYSICIAN: Cristofer Joy MD DISCHARGE DIAGNOSES: 1. Right lower lobe pneumonia, community acquired, in a patient with a septic component, showing stabilization after antibiotics and IV fluids. 2. Sepsis secondary to #1, now resolved. 3. Questionable prostatitis with a normal PSA and elevated C-reactive protein. 4. Anemia with a normocytic/normochromic RBC presentation of uncertain etiology with pancytopenia that is concerning for a hematologic disorder and will have close followup with Dr. Mittal, elementary school band director in [place] 5. Unintentional weight loss of 30 pounds over the last 3 months, unknown etiology. 6. Constipation is now resolved. 7. Lower back pain secondary to an L2 compression fracture within the last 2 months and no reported paresthesia, bowel or bladder dysfunction. 8. Microhematuria, most likely secondary to acute prostatitis and/or a urinary tract infection. 9. Gastroesophageal reflux disease. HISTORY OF PRESENT ILLNESS: This is a 81 year-old male patient who lives in [place], [place]. He was visiting his family here in [place] and he presented to the Emergency Room complaining of a nonobstructive cough that had been present for about 4 days and that he had been running a fever and had chills. Fever was noted up to 100.1 over the last 3 days. Laboratory studies showed he had a 2.4 white count with a left shift and 6% bands. Chemistries had normal electrolytes. Lactic acid was slightly elevated at 2.4. Liver functions showed a slight elevation in AST at 52 and bilirubin at 1.1. Radiographic studies in the Emergency Department on chest x-ray showed no definite consolidation, only mention of mild bronchitis. The Emergency Room physician, Bonilla, based off the patient's history of back pain of which he has had a recent lumbar compression fracture and history of benign prostatic hypertrophy, completed a rectal examination with a note the prostate was enlarged and tender on palpation as well as boggy. The patient's vital signs on admission showed he was febrile with a temperature of 100.8, pulse 101, blood pressure 143/76, oxygen saturation 95% on room air with respirations at 20. There were concerns for the fever and neutropenia with an elevated lactic acid as well as questionable acute prostatitis so a CT of the abdomen and pelvis with contrast was ordered. Per radiology interpretation it was noted that he had a right basilar airspace consolidation. There was also note of a large volume of stool in his colon and his bladder wall was thickened with associated enlargement of the prostate. Dr. Crystal then requested the patient be admitted to the hospital for continuation of treatment and further evaluation for concerns for of his sepsis and the consolidation noted on CT scan of the right lower lobe. The patient was admitted to the hospital for treatment of right lower lobe pneumonia. He was initially started on Levaquin in the Emergency Room. There were no steroids started due to his pancytopenia as well as no wheezing. His home medications were resumed. He does not have a primary care physician but has had a scheduled visit with a primary care physician in [place] by the name of Dr. Lomax that was scheduled for later this month. His vital signs remained stable for the most part and he had no further complaints of fever. His WBC stayed quite low with the lowest being recorded of 1.5 but today on discharge it is 2.1. His hemoglobin showed a normochromic normocytic appearance that was fairly stable, around 9.6 and 28.2. His platelet count dropped as low as 85,000 , still remained low at 96,000. Dr. Mittal, elementary school band director in [place] , was called and she added additional testing of B12 and folate as well as to monitor his C-reactive protein which initially was 26.2, went down to 11.2, back up to 26.3 and today is 12.2. She also requested his B12 and his folate, the order which were both within normal limits. He progressed rather slowly with his pneumonia presentation and was actually changed to [place] at the recommendation of Dr. Valles, Infectious Disease, in [place], hoping that maybe his recovery would be somewhat more expedient. Two days ago I gave him a dose of steroids and that seemed to improve his pneumonia symptoms more than the antibiotics. It is to be noted that his sputum, blood and urine cultures all showed no growth. He also had a very difficult time with keeping his oxygen saturations up until he received the steroids. With exertion, his oxygen would drop into the mid 80s and he was on breathing treatments throughout his entire stay. After he received the steroid treatments his oxygen saturations improved dramatically as well as his energy level and his symptoms. He can be discharged home today. DISCHARGE PLAN: He will be discharged home today in stable condition. He is to increase his activity as tolerated. He is to keep his appointment with Dr. Mittal on as well as keep his appointment with Dr. Lomax, primary care physician in [place] on December 20. He is to resume his previous diet. He also need to see Dr. Lopez in [place] who is his urologist in regards to the questionable prostatitis. DISCHARGE MEDICATIONS: 1. Omeprazole. 2. Finasteride. 3. Simvastatin. 4. Tamsulosin. 5. Albuterol sulfate. 6. Lexapro. . 7. Guaifenesin. 8. Levofloxacin. 9. Nebulizer. 10. Prednisone taper. 11. Restoril. 12. Tessalon Pieter. Dr. Joy is the collaborating physician available for consultation. #[id number] HOSPITAL COURSE: PLAN: ERASTOD
== END 2016-12-15 15:00 | disposition home or self-care (01) | DRG 871 ==
LOC: ER 09:22 → MS 12:00
PROVIDERS: ADMIT Nurse Practitioner Family; ATTEND Nurse Practitioner Acute Care
PROC: BW21YZZ Computerized Tomography (CT Scan) of Abdomen and Pelvis using Other Contrast (ICD-10-PCS; principal; 2016-12-09)
DX: A41.9 Sepsis, unspecified organism (principal); J18.9 Pneumonia, unspecified organism; D61.818 Other pancytopenia; N41.0 Acute prostatitis; N39.0 Urinary tract infection, site not specified; R63.4 Abnormal weight loss; K59.00 Constipation, unspecified; S32.020D Wedge compression fracture of second lumbar vertebra, subsequent encounter for fracture with routine healing; K21.9 Gastro-esophageal reflux disease without esophagitis; E78.5 Hyperlipidemia, unspecified; N40.0 Benign prostatic hyperplasia without lower urinary tract symptoms; R31.29 Other microscopic hematuria; G89.29 Other chronic pain; M54.9 Dorsalgia, unspecified; Z88.0 Allergy status to penicillin; Z68.23 Body mass index [BMI] 23.0-23.9, adult; Z79.899 Other long term (current) drug therapy